=== PATIENT | female | born 1945 | race Caucasian/White ===

== ENCOUNTER 2017-05-14 05:53 | Day surgery (SDC) | payer MEDICAID ==
[2017-04-29 14:14] VITALS: BMI 29.0
[2017-05-14] MEDS ORDERED: Lidocaine 1% Inj (20ml) ONE (07:28)
[2017-05-14] MEDS ORDERED: ceFAZolin IV 2 gm in Dextrose 1 GM/50 ML BAG IVPB ONE (07:28)
[2017-05-14] MEDS ORDERED: Bupivacaine-Epi 0.25%-1:200,000 PF Inj ONE (07:28)
[2017-05-14] MEDS ORDERED: Lactated Ringer's 1,000 ML IV ONE ×2 (07:45→08:50)
[2017-05-14] MEDS ORDERED: Midazolam 2 MG/2 ML VIAL ONE (07:48)
[2017-05-14] MEDS ORDERED: Propofol 10 mg/ml Inj (20 ML) ONE (07:48)
[2017-05-14] MEDS ORDERED: Rocuronium 10 mg/ml (5 ml) ONE (07:50)
[2017-05-14] MEDS ORDERED: Phenylephrine 10 mg/ml Inj ONE (07:50)
[2017-05-14] MEDS ORDERED: Lidocaine Hydrochloride 5 ML INJ ONE (07:50)
[2017-05-14] MEDS ORDERED: ePHEDrine 50 mg/ml Inj ONE (07:50)
[2017-05-14] MEDS ORDERED: Neostigmine Methylsulfate 3mg/3ml Syringe IV ONE (08:45)
[2017-05-14] MEDS ORDERED: Bupivacaine HCl 0.25% PF (10 ml) Inj ONE (08:46)
[2017-05-14] MEDS ORDERED: Bupivacaine 0.25% Inj(30mL) ONE (08:47)
[2017-05-14 11:46] VITALS: RESP 18
[2017-05-14] MEDS ORDERED: Oxycodone/Acetaminophen 5/325 mg Tab PO STA (11:58)
--- NOTE | 2017-05-14 12:38 | PCM.SURG1 ---
Surgeon's Initial Post Op Note - Surgeon's Notes Surgeon: Beau Ground Crew Supervisor: Lashonda Rodriguez PGY1 Type of Anesthesia: General Endo Pre-Operative Diagnosis: Umbilical hernia Operative Findings: see operative report Post-Operative Diagnosis: Umbilical hernia Operation Performed: Robotic Umbilical hernia repair with mesh Specimen/Specimens Removed: N/A Estimated Blood Loss: EBL {In ML}: 5 Blood Products Given: N/A Drains Used: No Drains Post-Op Condition: Good Date of Surgery/Procedure: 05/14/17 Time of Surgery/Procedure: 10:00
[2017-05-14 13:53] VITALS: BP 98/58; PULSE 69; TEMP 98; O2SAT 96
--- NOTE | 2017-05-15 04:08 | OP ---
PROCEDURE DATE: 05/14/2017 PREOPERATIVE DIAGNOSIS: Umbilical hernia. POSTOPERATIVE DIAGNOSIS: Umbilical hernia. PROCEDURE DONE: Robotic umbilical hernia repair with a mesh. SURGEON: Johnny Yanez MD ASSISTANTS: ESPERANZA Kim and Perez, PGY1, resident. TYPE OF ANESTHESIA: General endotracheal tube anesthesia. ESTIMATED BLOOD LOSS: Around 10 mL. DRAINS: None. PATHOLOGY: None. COMPLICATIONS: None. INTRAOPERATIVE FINDINGS: The patient had 2 x 2 cm umbilical hernia containing preperitoneal fat. DESCRIPTION OF PROCEDURE: On intraoperative steps, this is a 72-year-old female who was diagnosed with umbilical hernia and the patient was consented for robotic umbilical hernia repair with the mesh, laparoscopic prosthetic assistant, brought to the OR, and placed supine on the operating table. After induction of the anesthesia, the abdomen was prepped and draped in usual sterile fashion. The left upper quadrant incision was made after incising the skin and subcutaneous tissue and fascia. The peritoneal cavity was entered using Visiport technique. Pneumo was created. Another two 8 mm port was placed in left flank and left lower quadrant. After the robot was brought in, camera arm as well as arm 1 and arm 2 were docked and the hernial content was reduced back into the peritoneal cavity. Defect was sutured with a #1 Prolene V-Loc suture and 9 cm mesh was implanted and after proper implantation of the mesh, all the instruments were taken out, all the ports were taken out under vision, Pneumo was deflated. All the 8 mm port site was closed in 1 layer with 4-0 Monocryl to skin and dry sterile dressing was applied. The TAP block was given to the patient postoperatively. The patient tolerated the procedure well. Count of instrument was correct. There was no apparent complication. The patient was extubated in the OR, sent to the postanesthesia care unit in stable condition. Johnny Yanez MD
== END 2017-05-14 13:40 | disposition home or self-care (01) ==
LOC: C.SDS 05:53
PROVIDERS: ATTEND Surgery Surgical Critical Care
DX: K42.9 Umbilical hernia without obstruction or gangrene (principal)
CPT/HCPCS: 49652; J0690; J2250; J2270; J2370; J2704; J2710; J3010; J7120